=== PATIENT | female | born 1955 | race Caucasian/White ===

== ENCOUNTER → 2016-06-07 | Outpatient (CLI) | payer OTHER | LOC: FIMAGING 07:39 | DX: Z12.31 Encounter for screening mammogram for malignant neoplasm of breast (principal) | CPT/HCPCS: G0202 ==

== ENCOUNTER → 2016-08-15 | Outpatient (CLI) | payer OTHER | LOC: CIMAGING 08:43 | PROVIDERS: ATTEND Obstetrics & Gynecology | DX: N95.0 Postmenopausal bleeding (principal) | CPT/HCPCS: 76856-PO ==

== ENCOUNTER → 2017-06-12 | Outpatient (CLI) | payer OTHER | LOC: FIMAGING 07:52 | PROVIDERS: ATTEND Obstetrics & Gynecology | DX: Z12.31 Encounter for screening mammogram for malignant neoplasm of breast (principal) ==

== ENCOUNTER 2017-12-03 12:29 | Inpatient (IN) | payer OTHER ==
[2017-12-03] MEDS ORDERED: NS 500 ML IV ONE (13:36)
[2017-12-03 13:46] LABS: PLATELET COUNT 465 10^3/uL (150-400)
--- NOTE | 2017-12-03 14:06 | EDPHY ---
H & P Time Seen by Provider: 12/03/17 13:35 HPI/ROS: HPI Cough, fatigue, headache. 61-year-old female by private vehicle with her . This patient reports that she has had fever, chills, nonproductive cough, intermittent gradual onset frontal headache and fatigue ongoing for 9 days, worse in the last 3 days. Denies ill contacts. ROS: Constitutional: As above. Eyes: No discharge. No changes in vision. ENT: No sore throat. No nasal congestion or rhinorrhea. Respiratory: As above. Cardiac: No chest pain, no palpitations. Gastrointestinal: No abdominal pain, no vomiting, no diarrhea. Genitourinary: No hematuria. No dysuria or increased frequency with urination. Musculoskeletal: No back pain. No neck pain. No myalgias or arthralgias. Skin: No rashes. Neurological: No headache. No focal weakness or altered sensation. Past medical history: Asthma. Social history: Nonsmoker. 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 No alcohol. Physical Exam: General Appearance: Alert, no distress. This patient is responding to questions appropriately and in full sentences. This patient appears well- hydrated and well-nourished. Eyes: Pupils equal and round no pallor or injection. No lid edema, erythema or injection. Respiratory: There are no retractions, lungs are clear to auscultation except for some crackles and scant rhonchi at the left base, otherwise with moderate air movement bilaterally. No tachypnea. Cardiovascular: Regular rate and rhythm. Tachycardia. No murmur appreciated. Gastrointestinal: Abdomen is soft and nontender, no masses, bowel sounds normal. No focal tenderness at McBurney's point. No Dc sign. Neurological: Motor sensory function is grossly intact. Cranial nerves are normal. Gait is normal. Skin: Warm and dry, no rashes. Musculoskeletal: Neck is supple and nontender. No cervical, submandibular, submental lymphadenopathy. Extremities are symmetrical. All joints range without pain or impingement. Psychiatric: No agitation. No depression. Database: EKG: Imaging: Chest x-ray PA and lateral: Significant for a left lower lobe infiltrative process. The cardiac mediastinal silhouette is on was unremarkable. No evidence of pneumothorax. Interpreted by me. Procedures: Emergency department course: Triage vital signs reviewed. She is tachycardic and tachypneic. She is afebrile. Mildly hypertensive. IV established. She was placed on a chemical process analyst. She was started on IV normal saline with 1 L to be given over the next hour. Chest x-ray obtained and reviewed by myself. 1:50 p.m., the patient's initial venous lactate is 1.1. She meets criteria for sepsis based on suspected infection and SIRS criteria of tachypnea and tachycardia. She does not meet criteria for severe sepsis. Blood cultures obtained. She will be started on IV Rocephin and IV azithromycin in the emergency department. Hospitalist paged for admission. Plan for admission discussed with the patient and her . They consent. 2:00 p.m., spoke with on-call hospitalist. Case discussed in detail with Dr. Navid Rivas. Patient accepted for admission. The patient's remaining emergency department course under my care has been uneventful. She was admitted to the hospitalist service in stable condition. Differential Diagnosis: The differential diagnosis on this patient includes but is not limited to pneumonia, sepsis. Severe sepsis, septic shock unlikely. This represents a partial list of diagnoses considered. These considerations are based on history , physical exam, past history, reassessment and diagnostic testing. Smoking Status: Former smoker Constitutional: Initial Vital Signs Temperature (C) 37.0 C 12/03/17 12:35 Heart Rate 128 H 12/03/17 12:35 Respiratory Rate 25 H 12/03/17 12:35 Blood Pressure 152/98 H 12/03/17 12:35 O2 Sat (%) 95 12/03/17 12:35 O2 Delivery Mode Room Air Allergies/Adverse Reactions: codeine Allergy (Verified 12/03/17 12:40) propoxyphene [From Darvon] Allergy (Verified 12/03/17 12:39) Home Medications: Medication Instructions Recorded Albuterol 12/03/17 Singulair 12/03/17 Medical Decision Making - Data Points Laboratory Results: Laboratory Results 12/03/17 13:25 12/03/17 13:25 12/03/17 12/03/17 12/03/17 13:25 13:25 13:25 WBC 7.19 10^3/uL 10^3/uL (3.80-9.50) RBC 4.56 10^6/uL 10^6/uL (4.18-5.33) Hgb 12.7 g/dL g/dL (12.6-16.3) Hct 38.4 % % (38.0-47.0) MCV 84.2 fL fL (81.5-99.8) MCH 27.9 pg pg (27.9-34.1) MCHC 33.1 g/dL g/dL (32.4-36.7) RDW 14.1 % % (11.5-15.2) Plt Count 465 10^3/uL H 10^3/uL (150-400) MPV 8.4 fL L fL (8.7-11.7) Neut % (Auto) 76.4 % H % (39.3-74.2) Lymph % (Auto) 16.1 % % (15.0-45.0) [place] % (Auto) 5.6 % % (4.5-13.0) Eos % (Auto) 0.7 % % (0.6-7.6) Baso % (Auto) 0.4 % % (0.3-1.7) Nucleat RBC Rel Count 0.0 % % (0.0-0.2) Absolute Neuts (auto) 5.49 10^3/uL 10^3/uL (1.70-6.50) Absolute Lymphs (auto) 1.16 10^3/uL 10^3/uL (1.00-3.00) Absolute Monos (auto) 0.40 10^3/uL 10^3/uL (0.30-0.80) Absolute Eos (auto) 0.05 10^3/uL 10^3/uL (0.03-0.40) Absolute Basos (auto) 0.03 10^3/uL 10^3/uL (0.02-0.10) Absolute Nucleated RBC 0.00 10^3/uL 10^3/uL (0-0.01) Immature Gran % 0.8 % % (0.0-1.1) Immature Gran # 0.06 10^3/uL 10^3/uL (0.00-0.10) VBG Lactic Acid 1.1 mmol/L mmol/L (0.7-2.1) Sodium 139 mEq/L mEq/L (135-145) Potassium 3.8 mEq/L mEq/L (3.3-5.0) Chloride 100 mEq/L mEq/L (97-110) Carbon Dioxide 27 mEq/l mEq/l (22-31) Anion Gap 12 mEq/L mEq/L (8-16) BUN 10 mg/dL mg/dL (7-23) Creatinine 0.7 mg/dL mg/dL (0.6-1.0) Estimated GFR > 60 Glucose 120 mg/dL H mg/dL (70-100) Calcium 9.2 mg/dL mg/dL (8.5-10.4) Medications Given: Discontinued Medications Sodium Chloride (Ns) 500 mls @ 1,000 mls/hr IV EDNOW ONE PRN Reason: Protocol Stop: 12/03/17 14:05 Last Admin: 12/03/17 13:58 Dose: 500 mls Departure - Departure Disposition: [facility] Inpatient Acute Clinical Impression: Pneumonia, Sepsis Condition: Fair Referrals: NONE *PRIMARY CARE P,. [Primary Care Provider] - As per Instructions
[2017-12-03] MEDS ORDERED: AZITHROMYCIN IV 500 MG in D5W 250 ML IV ONE (14:09)
[2017-12-03 15:11] LABS: INR 1.24 (0.83-1.16); PROTIME(PATIENT) 15.8 SEC (12.0-15.0)
[2017-12-03] MEDS ORDERED: ONDANSETRON 4 MG/2 ML VIAL IVP PRN (15:14)
[2017-12-03] MEDS ORDERED: ZOLPIDEM TARTRATE 5 MG TAB PO PRN (15:14)
[2017-12-03] MEDS ORDERED: NS 1,000 ML IV ONE (15:44)
[2017-12-03] MEDS ORDERED: PROMETHAZINE HCL 25 MG/ML INJ IVP PRN (15:45)
--- NOTE | 2017-12-03 15:56 | PDGENHP ---
History and Physical History and Physical: CC: Cough and fever HISTORY: This patient was well until 10 days ago when she had sudden onset of abrupt chills and high fever. She has been having chills and fevers on a daily basis since then predominantly at night. Initially her illness was marked by some moderate nonbloody diarrhea with if anything mild abdominal pain and no vomiting. Her did administer some IV fluids initially which helped at that time. The diarrhea has resolved. However over the last several days she has had progressively worsening cough and sputum production along with some sense of dyspnea. She does have a history of asthma and has started using her albuterol inhaler 2-4 times daily not having used at all summer. It does seem to help somewhat when she uses it. Breathing does not seem very bad to her, predominantly she is bothered by this severe fevers and chills, and feeling somewhat weak and dehydrated. She does complain of a diffuse headache without neurologic symptoms or photophobia or neck stiffness. There is some myalgias as well. No rash or other skin lesions, no oral sores, no urinary symptoms and no swollen or red joints. Prior to this illness she was feeling well. 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 There are a lot of mosquitos there. 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 I have reviewed the list and ordered appropriate medicines. PHYSICAL EXAMINATION: Vital Signs: Tachycardic with pulse initially in the 120s now down to 110, good blood pressure, tachypneic with normal temperature so far Splunk Architect: Sinus tachycardia Examination: General: alert, oriented, good mentation, looks ill but in no distress Skin: warm, dry, good color, no rash or other lesions HEENT: normal Neck: no mass or jvd Resps: Mildly labored, Lungs: no wheezing or prolonged expiration, rales are heard at the left base only Heart: regular, no murmur Abdomen: soft, nondistended, nontender, +BS, no mass Upper Extremities: normal Lower Extremities: no edema, warm No Bleeding or bruising Neurologic: Normal mentation, normal speech/language, 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, no focal weakness IV site: looks normal LABORATORY DATA: Glucose 120, normal bilirubin and lactate, otherwise unremarkable chemistries Platelets [place] at [id number] otherwise normal CBC RADIOLOGY STUDIES: I reviewed images from a two view chest x-ray done in the ER which shows a left lower lobe infiltrate ASSESSMENT: * acute sepsis without signs of shock or organ failure * left lower lobe community-acquired pneumonia in an illness originally notable for diarrhea and fever, fever persisting diarrhea resolved * mild asthma exacerbation responding well to continued Asmanex Singulair and mild increase in bronchodilator use * mild hyperglycemia This illness could potentially be viral given its progression, and would also consider the possibility of Legionella given her diarrhea. Most likely however this is a more typical viral or bacterial pneumonia illness. Her current asthma exacerbation is fairly mild, and may not warrant any increase in asthma medication per se but will follow this closely. PLANS: * Inpatient admission for IV antibiotics, IV hydration, treatment of asthma * Legionella titer and respiratory pathogen panel have been ordered * Rocephin and azithromycin started in the ER will continue those * Further IV fluid boluses followed by hydration and very careful watch for resolution of tachycardia and any development of signs of worsening sepsis I have reviewed the patient's case in detail with Dr. Singh I have reviewed the patient's past medical records as part of this assessment, including prior laboratory data from clinics
[2017-12-03] MEDS: ACETAMINOPHEN 500 MG TAB PO PRN ×2 (16:54→20:53)
[2017-12-03] MEDS: IBUPROFEN 200 MG TAB PO PRN ×2 (16:55→20:53)
[2017-12-03] MEDS: ALBUTEROL 60 PUFFS/8 GM MDI IH PRN (17:13)
--- NOTE | 2017-12-03 17:16 | PDMN ---
Medical Necessity [place] [facility] [place] Sepsis: 61 y/o w/ acute sepsis, LLL CAP, asthma exacerbation, IP admit for IV antibx, IV hydration and tx of asthma w/ nebs. Potential for legionella, titer drawn, resp path panel and BC pending, pt is tachycardic and tachypneac, temp 39.2.
[2017-12-03] MEDS: NS 1,000 ML IV SCH (18:49)
[2017-12-03] MEDS: MELATONIN 3 MG TAB PO SCH (20:50)
[2017-12-03] MEDS: MONTELUKAST SODIUM 10 MG TAB PO SCH (20:52)
[2017-12-03] MEDS: ALBUTEROL 3 ML DEYVIAL IH PRN (20:59)
[2017-12-03] MEDS: MOMETASONE 220MCG INHALER IH SCH (20:59)
[2017-12-04] MEDS: IBUPROFEN 200 MG TAB PO PRN ×4 (04:04→22:21)
[2017-12-04] MEDS: ACETAMINOPHEN 500 MG TAB PO PRN ×4 (04:04→22:21)
[2017-12-04] MEDS: ALBUTEROL 60 PUFFS/8 GM MDI IH PRN ×2 (07:03→22:23)
[2017-12-04] MEDS: NS 1,000 ML IV SCH ×2 (09:10→18:05)
[2017-12-04] MEDS: AZITHROMYCIN 250 MG TAB PO SCH (09:30)
--- NOTE | 2017-12-04 10:23 | HOSPPROG ---
Hospitalist Progress Note Assessment/Plan: 7-year-old woman with a history of asthma is admitted with cough and fever. She had been sick 10 days with fevers up to 102 cough and shortness of breath prior to coming into the hospital. # pneumonia with acute respiratory failure associated with asthma exacerbation , likely community-acquired pneumonia however patient did have some diarrhea so Legionella titers are pending. Slightly better but still quite short of breath today and tight. * Continue antibiotics * Await blood work * Add prednisone for acute asthma exacerbation * Continue her nebulizers and follow clinically # diarrhea, resolved. This may been related to a viral illness that may have been associated with her initial symptoms. She is on appropriate antibiotics for both mycoplasma and Legionella as well as community-acquired pneumonia # tremor: Stable # DVT prophylaxis, will add low-molecular heparin Subjective: Patient new to me and chart reviewed. Feels sick still perhaps a little better than yesterday. No chest pain no rash no diarrhea Objective: Vital Signs Temp Pulse Resp BP Pulse Ox 37.1 C 69 16 131/70 H 96 12/04/17 07:37 12/04/17 07:37 12/04/17 07:37 12/04/17 07:37 12/04/17 07:37 12/03/17 12/04/17 12/05/17 05:59 05:59 05:59 Intake Total 5100 Output Total 1000 900 Balance 4100 -900 PT 15.8 SEC (12.0-15.0) H 12/03/17 13:28 INR 1.24 (0.83-1.16) H 12/03/17 13:28 - Physical Exam Constitutional: appears nourished, not in pain Eyes: PERRL, anicteric sclera, EOMI Ears, Nose, Mouth, Throat: moist mucous membranes, hearing normal Cardiovascular: regular rate and rhythym Respiratory: no respiratory distress, reduced air movement, inspiratory crackles (Left lower lobe) Gastrointestinal: normoactive bowel sounds, soft, non-tender abdomen Genitourinary: no bladder fullness Skin: warm, normal color Neurologic: AAOx3 Psychiatric: interacting appropriately, not anxious ICD10 Worksheet Patient Problems: Problems Problem Status Onset Pneumonia Acute Sepsis Acute
[2017-12-04] MEDS: ALBUTEROL 3 ML DEYVIAL IH PRN ×2 (10:33→14:32)
--- NOTE | 2017-12-04 15:50 | ASMTCASEMG ---
Living Arrangements What is your living Answers: With Spouse arrangement? Who do you live with? Type Of Residence What kind of residence do Answers: House you live in? Discharge Plan Comments Coordination Status Comments Notes: Pt is a 61 y/o female admitted for a cough and fever. It is uncertain what pt may need at this time. Pt is currently getting ceftriaxone iv. CM to follow. Plan: TBD Date Signed: 12/04/2017 03:49 PM Electronically Signed By:SWETA Mcwilliams
[2017-12-04] MEDS: MONTELUKAST SODIUM 10 MG TAB PO SCH (20:45)
[2017-12-04] MEDS: MOMETASONE 220MCG INHALER IH SCH ×2 (21:47→22:22)
[2017-12-04] MEDS: MELATONIN 3 MG TAB PO SCH (22:24)
[2017-12-05] MEDS: AZITHROMYCIN 250 MG TAB PO SCH (08:40)
[2017-12-05] MEDS ORDERED: ENOXAPARIN 40 MG/0.4 ML SYR SC SCH (09:00)
[2017-12-05] MEDS: ALBUTEROL 60 PUFFS/8 GM MDI IH PRN (11:29)
[2017-12-05] MEDS: IBUPROFEN 200 MG TAB PO PRN (12:52)
[2017-12-05] MEDS: ACETAMINOPHEN 500 MG TAB PO PRN (12:53)
[2017-12-05 15:12] VITALS: BP 139/81
--- NOTE | 2017-12-05 15:46 | PDDCSUM ---
Discharge Summary Discharge Summary: 61-year-old woman with a history of asthma is admitted with cough and fever. She had been sick 10 days with fevers up to 102 cough and shortness of breath prior to coming into the hospital. Treated for pneumonia with Rocephin and Azithromycin. On the day of discharge, abx changed to Levaquin and Prednisone started. She is on RA DDX: # pneumonia/Asthma Exacerbation with acute respiratory failure associated with asthma exacerbation, likely community-acquired pneumonia however patient did have some diarrhea so Legionella titers are pending. Slightly better but still quite short of breath today and tight. * cont Levaquin and Steroid burst # diarrhea, resolved. This may been related to a viral illness that may have been associated with her initial symptoms. She is on appropriate antibiotics for both mycoplasma and Legionella as well as community-acquired pneumonia # tremor: Stable Exam: NAD AAOX3 RRR EXP WHEEZE S/NT/ND MEDS: SEE MED REC F/U: WITH PCP IN ONE WEEK TOTAL TIME SPENT ON D/C IS 35 MINS
[2017-12-05] MEDS ORDERED: PNEUMOCOCCAL 0.5ML VACCINE VIAL IM ONE (15:50)
--- NOTE | 2017-12-05 19:27 | ASMTCMCOM ---
CM Note CM Note Notes: CM spoke to SAILAJA Panda and Dr. Resendiz about this case. Pt is being discharged today without any needs. CM available for changes. Plan: Independent Date Signed: 12/05/2017 03:43 PM Electronically Signed By:SWETA Mcwilliams
--- NOTE | 2017-12-05 19:32 | ASMTLACE ---
LACE Length of stay for Answers: 2 days current admission Acuity / Level of Answers: Yes Care: Did the patient have an inpatient admission? Comorbidities - select Answers: Other Notes: Asthma all that apply # of Emergency department Answers: 1-2 visits in the last 6 months Score: 7 Date Signed: 12/05/2017 03:48 PM Electronically Signed By:SWETA Mcwilliams
--- NOTE | 2017-12-10 20:55 | PQFORM ---
PHYSICIAN QUERY FORM Needs Your Response This query form is being sent to you to assure this patient record is coded properly. Please respond to the question below: DIGESTER QUESTION: Dr Resendiz Chart documentation mentions that the patient had Sepsis but Sepsis is not mentioned in the Discharge Summary. Did the patient have Sepsis? ___x Yes ___ No ___ Other (Please Specify ) ___ Unable to Determine Thank you Julissa ESTRADA Supervisor [employer] INSTRUCTIONS FOR RESPONSE: Answer question by clicking on the "Edit Document" button. Move cursor to area below the stars. When complete, hit "Save." Click on the "Sign" button, then click "Sign" again. Type in your PIN and hit "Enter." MTDD
== END 2017-12-05 17:26 | disposition home or self-care (01) | DRG 871 ==
LOC: OBSVTOIN 14:43 → F3E 16:25
PROVIDERS: ADMIT Internal Medicine; ATTEND Internal Medicine
DX: A41.9 Sepsis, unspecified organism (principal); J18.9 Pneumonia, unspecified organism; J45.901 Unspecified asthma with (acute) exacerbation; J96.00 Acute respiratory failure, unspecified whether with hypoxia or hypercapnia; Z87.891 Personal history of nicotine dependence; R19.7 Diarrhea, unspecified; R25.1 Tremor, unspecified
CPT/HCPCS: 87449-90; 96374; G0008; G0009; J0456; J0696; J1650; J7613

== ENCOUNTER → 2018-06-17 | Outpatient (CLI) | payer OTHER | LOC: FIMAGING 07:45 | PROVIDERS: ATTEND Obstetrics & Gynecology | DX: Z12.31 Encounter for screening mammogram for malignant neoplasm of breast (principal); Z98.82 Breast implant status ==